=== PATIENT | female | born 1985 ===

== ENCOUNTER 2020-03-17 16:33 | Outpatient (REF) | payer OTHER, MEDICAID, SELFPAY ==
[2020-03-20 10:36] LABS: SARS-CoV-2 RNA Undetected (Undetected); SARS-CoV-2 Specimen Source Nasal
== END 2020-03-17 16:53 ==
LOC: NCHCN 16:33
PROVIDERS: Visit Provider Nurse Practitioner Family
DX: Z20.828 Contact with and (suspected) exposure to other viral communicable diseases (principal)
CPT/HCPCS: U0003

== ENCOUNTER 2020-03-25 16:38 | Outpatient (REF) | payer OTHER, MEDICAID, SELFPAY ==
[2020-03-29 07:13] LABS: Patient Race White; SARS-CoV-2 RNA Undetected (Undetected); SARS-CoV-2 Specimen Source Nasal
== END 2020-03-25 16:58 ==
LOC: NCHCN 16:38
PROVIDERS: Visit Provider Nurse Practitioner Family
DX: Z20.828 Contact with and (suspected) exposure to other viral communicable diseases (principal)
CPT/HCPCS: U0003

== ENCOUNTER 2020-04-07 11:50 | Outpatient (REF) | payer OTHER, MEDICAID, SELFPAY ==
[2020-04-07 21:53] LABS: Calculated LDL 116 mg/dL (<100); Cholesterol 174 mg/dL (<200); Glucose 95 mg/dL (74-106); HDL Cholesterol 45 mg/dL (40-60); Triglyceride 68 mg/dL (<150)
[2020-04-09 09:31] LABS: Hepatitis B Surface Ag Negative (Negative)
[2020-04-09 10:08] LABS: HIV-1/2 Ag & Ab Screen Negative (Negative)
[2020-04-09 11:51] LABS: Syphilis Serology (RPR) Negative (Negative)
[2020-04-09 12:05] LABS: HSV Type 1 Ab, IgG Positive (Negative); HSV Type 2 Ab, IgG Positive (Negative)
== END 2020-04-07 12:10 ==
LOC: NCHCN 11:50
PROVIDERS: Visit Provider Family Medicine
DX: Z00.00 Encounter for general adult medical examination without abnormal findings (principal); N48.9 Disorder of penis, unspecified; Z13.220 Encounter for screening for lipoid disorders; Z11.59 Encounter for screening for other viral diseases; Z11.4 Encounter for screening for human immunodeficiency virus [HIV]; Z13.1 Encounter for screening for diabetes mellitus
CPT/HCPCS: 80061; 82947; 87340; 87389; 86592; 86695; 86696

== ENCOUNTER 2023-04-28 12:44 | Outpatient (REF) | payer MEDICAID, SELFPAY ==
[2023-04-28 19:01] LABS: Hemoglobin A1C 5.9 % (<5.7)
[2023-04-28 19:03] LABS: Calculated LDL 128 mg/dL (<100); Cholesterol 191 mg/dL (<200); HDL Cholesterol 49 mg/dL (40-60); Triglyceride 70 mg/dL (<150)
== END 2023-04-28 12:45 | disposition home or self-care (01) ==
LOC: NCHCN 12:44
PROVIDERS: Visit Provider Family Medicine
DX: R73.09 Other abnormal glucose (principal); E78.89 Other lipoprotein metabolism disorders
CPT/HCPCS: 80061; 83036

== ENCOUNTER 2024-12-27 18:39 | Outpatient (REF) | payer MEDICAID, SELFPAY ==
[2024-12-27 19:26] LABS: Calculated LDL 134 mg/dL (<100); Cholesterol 199 mg/dL (<200); HDL Cholesterol 46 mg/dL (>or=50); Triglyceride 95 mg/dL (<150)
== END 2024-12-27 18:40 | disposition home or self-care (01) ==
LOC: NCHCN 18:39
PROVIDERS: Visit Provider Student in an Organized Health Care Education/Training Program
DX: Z13.220 Encounter for screening for lipoid disorders (principal)
CPT/HCPCS: 80061